=== PATIENT | male | born 1980 | race Caucasian/White ===

== ENCOUNTER 2019-02-03 09:08 | Inpatient (IN) | payer OTHER ==
[~2019-02-03] VITALS: Ht 182.9 cm; Wt 90.7 kg
[~2019-02-03 09:08] MED LIST: CARAFATE1 GM/10 ML PO; DICYCLOMINE HCL20 MG PO; FLAGYL250 MG PO; LEVAQUIN500 MG PO; PROTONIX40 MG/ML PO; REGLAN10 MG PO; ZOFRAN ODT4 MG PO
--- OUTSIDE RECORDS SUMMARY | 2019-02-03 09:11 | XMS REPORT ---
Author Author [facility] Address Unknown Phone Unavailable Care Team Providers Care Shuttler Car Name Role Phone Unavailable Unavailable Payers Payer Name Policy Type Policy Number Effective Date Expiration Date Problems This patient has no known problems. Allergies, Adverse Reactions, Alerts Allergy Name Allergy Type Status Severity Reaction(s) Onset Date Inactive Date Treating Clinician Comments morphine DA Active CA 2019-02-01 00:00:00 morphine DA Active CA 2016-12-25 00:00:00 Medications This patient has no known medications. Results Test Description Test Time Test Comments Text Results Atomic Results Result Comments DRUGS OF ABUSE SCREEN UR 2019-02-01 20:14:00 UA PH DIPSTICK (test code=VIVIEN) 5.0 5.0-8.0 URN COCAINE (test code=COCAURN) NEGATIVE <300 ng/mL URN CANNABINOIDS (test code=CANNABURN) POSITIVE <50 ng/mL This test provides only a preliminary test result. A morespecific alternate chemical method must be used in order toobtain a confirmed analytical result. Gas chromatography/mass spectrometry (GC/MS) is thepreferred confirmatory method. Other chemical confirmationmethods are available. Clinical consideration and professional judgment should be applied to any drug of abusetest result, particularly when preliminary positive resultsare used.Unconfirmed screening results must not be used fornon-medical purposes (e.g., employment testing, legaltesting). URN AMPHETAMINE (test code=AMPHETURN) NEGATIVE <1000 ng/mL URN BARBITURATE (test code=BARBITURN) NEGATIVE <200 ng/mL URN BENZODIAZEPINE (test code=BENZOURN) NEGATIVE <200 ng/mL URN OPIATES (test code=OPIATURN) NEGATIVE <300 ng/mL URN PHENCYCLIDINE (PCP) (test code=PHENCURN) NEGATIVE <25 ng/mL URN METHADONE (test code=METHAURN) NEGATIVE <300 ng/mL URINALYSIS [id number] 19:42:00* Test Item Value Reference Range Comments UA COLOR (test code=COLU) MARIE YELLOW UA APPEARANCE (test code=APPU) Cloudy CLEAR UA GLUCOSE DIPSTICK (test code=DGLUU) NEGATIVE mg/dL NEGATIVE UA BILIRUBIN DIPSTICK (test code=BILU) 1+ (Small 0.5-1.0) mg/dL NEGATIVE UA KETONE DIPSTICK (test code=KETU) 20 (1+) mg/dL NEGATIVE UA SPECIFIC GRAVITY (test code=SGU) 1.030 1.001-1.035 UA BLOOD DIPSTICK (test code=VIRGILIO) Negative mg/dL NEGATIVE UA PH DIPSTICK (test code=VIVIEN) 5.0 5.0-8.0 UA PROTEIN DIPSTICK (test code=PROU) 100 (2+) mg/dL NEGATIVE UA UROBILINIOGEN DIPSTICK (test code=URO) 2.0 (1+) mg/dL NEGATIVE UA NITRITE DIPSTICK (test code=ROSS) NEGATIVE NEGATIVE UA LEUKOCYTE ESTERASE W REFLEX (test code=LEUUR) NEGATIVE Huma/uL NEGATIVE UA WBC (test code=WBCU) 11-20 per HPF 0-5 UA RBC (test code=RBCU) 0-2 #/HPF 0-5 UA EPITHELIAL CELLS (test code=EPIU) FEW per HPF FEW UA BACTERIA (test code=BACU) FEW #/HPF NONE UA HYALINE CAST (test code=HYALU) >20 #/LPF 0-5 UA MUCUS (test code=MUCU) MANY #/LPF FEW Urine Source? Clean CatchDRUGS OF ABUSE SCREEN [id number] 19:42:00* Test Item Value Reference Range Comments UA PH DIPSTICK (test code=VIVIEN) 5.0 5.0-8.0 URN COCAINE (test code=COCAURN) <300 ng/mL URN CANNABINOIDS (test code=CANNABURN) <50 ng/mL URN AMPHETAMINE (test code=AMPHETURN) <1000 ng/mL URN BARBITURATE (test code=BARBITURN) <200 ng/mL URN BENZODIAZEPINE (test code=BENZOURN) <200 ng/mL URN OPIATES (test code=OPIATURN) <300 ng/mL URN PHENCYCLIDINE (PCP) (test code=PHENCURN) <25 ng/mL URN METHADONE (test code=METHAURN) <300 ng/mL BASIC METABOLIC [id number] 18:26:00* Test Item Value Reference Range Comments SODIUM (test code=NA) 135 mmol/L 136-145 POTASSIUM (test code=K) 4.0 mmol/L 3.5-5.1 CHLORIDE (test code=CL) 108.0 mmol/L 98-107 CARBON DIOXIDE (test code=CO2) 17.0 mmol/L 21-32 ANION GAP (test code=GAP) 14.0 10-20 GLUCOSE (test code=GLU) 122 mg/dL 74-106 BLOOD UREA NITROGEN (test code=BUN) 22 mg/dL 7-18 GLOMERULAR FILTRATION RATE (test code=GFR) > 60 mL/min >=60 Estimated GFR by using Modified MDRD formula.Chronic kidney disease is defined as either kidney damageor GFR <60 mL/min/1.73 m2 for >3 months. CREATININE (test code=CREAT) 1.30 mg/dL 0.7-1.3 BUN/CREATININE RATIO (test code=BUN/CREA) 16.9 10-20 CALCIUM (test code=CA) 10.3 mg/dL 8.5-10.1 HEPATIC FUNCTION [id number] 18:26:00* Test Item Value Reference Range Comments TOTAL PROTEIN (test code=PROT) 9.5 gram/dL 6.4-8.2 ALBUMIN (test code=ALB) 4.9 g/dL 3.4-5.0 GLOBULIN (test code=GLOB) 4.6 gram/dL 2.7-4.2 ALBUMIN/GLOBULIN RATIO (test code=A/G) 1.1 0.75-1.50 BILIRUBIN TOTAL (test code=BILT) 0.80 mg/dL 0.0-1.0 BILIRUBIN DIRECT (test code=BILD) 0.10 mg/dL 0.0-0.20 SGOT/AST (test code=AST) 19 IUnit/L 15-37 SGPT/ALT (test code=ALT) 26 IUnit/L 12-78 ALKALINE PHOSPHATASE TOTAL (test code=ALKP) 90 IUnit/L 45-117 Note change in reference range due to change in reagent. [id number] 18:26:00* Test Item Value Reference Range Comments LIPASE (test code=LIP) 75 U/L 73.0-393.0 [id number] 18:26:00* Test Item Value Reference Range Comments TROPONIN-I (test code=TROPI) <0.015 ng/mL 0-0.045 C REACTIVE [id number] 18:26:00* Test Item Value Reference Range Comments C REACTIVE PROTEIN (test code=CRP) <0.29 mg/dL 0-0.3 BASIC METABOLIC [id number] 18:16:00* Test Item Value Reference Range Comments SODIUM (test code=NA) 135 mmol/L 136-145 POTASSIUM (test code=K) 4.0 mmol/L 3.5-5.1 CHLORIDE (test code=CL) 108.0 mmol/L 98-107 CARBON DIOXIDE (test code=CO2) mmol/L 21-32 ANION GAP (test code=GAP) 10-20 GLUCOSE (test code=GLU) mg/dL 74-106 BLOOD UREA NITROGEN (test code=BUN) mg/dL 7-18 GLOMERULAR FILTRATION RATE (test code=GFR) mL/min >=60 CREATININE (test code=CREAT) mg/dL 0.7-1.3 BUN/CREATININE RATIO (test code=BUN/CREA) 10-20 CALCIUM (test code=CA) mg/dL 8.5-10.1 HEPATIC FUNCTION [id number] 18:16:00* Test Item Value Reference Range Comments TOTAL PROTEIN (test code=PROT) gram/dL 6.4-8.2 ALBUMIN (test code=ALB) g/dL 3.4-5.0 GLOBULIN (test code=GLOB) gram/dL 2.7-4.2 ALBUMIN/GLOBULIN RATIO (test code=A/G) 0.75-1.50 BILIRUBIN TOTAL (test code=BILT) mg/dL 0.0-1.0 BILIRUBIN DIRECT (test code=BILD) mg/dL 0.0-0.20 SGOT/AST (test code=AST) IUnit/L 15-37 SGPT/ALT (test code=ALT) IUnit/L 12-78 ALKALINE PHOSPHATASE TOTAL (test code=ALKP) IUnit/L 45-117 [id number] 18:16:00* Test Item Value Reference Range Comments LIPASE (test code=LIP) U/L 73.0-393.0 [id number] 18:16:00* Test Item Value Reference Range Comments TROPONIN-I (test code=TROPI) ng/mL 0-0.045 CBC W/O [id number] 17:59:00* Test Item Value Reference Range Comments WHITE BLOOD CELL (test code=WBC) K/mm3 4.5-12.5 RED BLOOD CELL (test code=RBC) mill/mm3 4.0-5.8 HEMOGLOBIN (test code=HGB) 17.3 gram/dL 13.0-17.5 HEMATOCRIT (test code=HCT) % 42.0-52.0 MEAN CELL VOLUME (test code=MCV) fL 80-98 MEAN CELL HGB (test code=MCH) picogram 27.0-33.0 MEAN CELL HGB CONCETRATION (test code=MCHC) gram/dL 33.0-36.0 RED CELL DISTRIBUTION WIDTH (test code=RDW) % 11.6-16.2 PLATELET COUNT (test code=PLT) K/mm3 150-450 MEAN PLATELET VOLUME (test code=MPV) fL 6.7-11.0 CBC W/O [id number] 17:59:00* Test Item Value Reference Range Comments WHITE BLOOD CELL (test code=WBC) 13.3 K/mm3 4.5-12.5 RED BLOOD CELL (test code=RBC) 6.10 mill/mm3 4.0-5.8 HEMOGLOBIN (test code=HGB) 17.3 gram/dL 13.0-17.5 HEMATOCRIT (test code=HCT) 53.3 % 42.0-52.0 MEAN CELL VOLUME (test code=MCV) 87.4 fL 80-98 MEAN CELL HGB (test code=MCH) 28.4 picogram 27.0-33.0 MEAN CELL HGB CONCETRATION (test code=MCHC) 32.5 gram/dL 33.0-36.0 RED CELL DISTRIBUTION WIDTH (test code=RDW) 13.3 % 11.6-16.2 PLATELET COUNT (test code=PLT) 230 K/mm3 150-450 MEAN PLATELET VOLUME (test code=MPV) 10.9 fL 6.7-11.0 - XR CHEST 1 [id number] 17:53:00 FAX: Maury Vieira DO [phone] [place]: St: REG FAX: MIKEY SAINI MD Name: BERNICE HERNANDEZ [facility] : 1980 Age/S: 38/M [address] [facility] Unit #: [id number] Loc: [place] [address] Phys: MIKEY SAINI MD Acct: [id number] Dis Date: Status: REG ER PHONE #: [phone] Exam Date: 02/01/2019 1750 FAX #: [phone] Reason: ABDOMINAL PAIN EXAMS: CPT CODE: [id number] XR CHEST 1 V [id number] REASON FOR EXAM: ABDOMINAL PAIN EXAM ORDER DATE: 02/01/2019 5:31 PM Ordering Shanta: MIKEY SAINI MD PROCEDURE: - XR CHEST 1 V COMPARISON: FINDINGS: Portable AP frontal view of the chest obtained at 5:49 PM shows clear lungs without evidence of consolidation. There is no evidence of effusion. The heart size is within normal limits. Pulmonary vasculatures are unremarkable. IMPRESSION: No active disease. at 1753 Reported and signed by: Ajith Lujan M.D. CC: Maury Raphael; MIKEY SAINI MD Technologist: MAGED OROSCO(R) Trnscrd Date/Time/By: 02/01/2019 (4481) : By: DavidL Orig Print D/T: S: 02/01/2019 (6734) PAGE 1 Signed Report
[2019-02-03] MEDS ORDERED: ONDANSETRON HCL INJ 2MG/ML 2ML 2 MG/ML VIAL IV STA (09:43)
[2019-02-03] MEDS ORDERED: SODIUM CHLORIDE 0.9% 1000ML 1,000 ML IV STA ×2 (09:43→09:58)
[2019-02-03] MEDS ORDERED: PANTOPRAZOLE 40 MG 10ML VIAL IV STA (09:43)
[2019-02-03 10:16] LABS: BASOPHILS # (AUTO) 0.1 (0.0-0.1); BASOPHILS % 0.3 % (0.0-1.0); EOSINOPHILS % 0.1 % (0.0-6.0); HEMATOCRIT 52.7 % (38.2-49.6); HEMOGLOBIN 18.3 g/dL (14.0-18.0); LYMPHOCYTES # (AUTO) 2.9 (1.0-3.2); LYMPHOCYTES % 19.8 % (18.0-39.1); MEAN CORPUSCULAR HEMOGLOBIN 29.5 pg (28-32); MEAN CORPUSCULAR HGB CONC 34.7 g/dL (31-35); MEAN CORPUSCULAR VOLUME 84.9 fL (81-99); MONOCYTES # (AUTO) 1.9 (0.2-0.8); NEUTROPHILS # (AUTO) 9.6 (2.1-6.9); PLATELET COUNT 219 x10e3/uL (140-360); RED BLOOD COUNT 6.21 x10e6/uL (4.3-5.7); RED CELL DISTRIBUTION WIDTH 13.2 % (11.7-14.4)
[2019-02-03] MEDS ORDERED: DIATRIZOATE MEGL/DIATRIZOA SOD 30 ML BTL PO ONE ×2 (10:18→10:41)
[2019-02-03] MEDS ORDERED: METOCLOPRAMIDE HCL 10 MG/2ML VIAL IV ONE (10:45)
[2019-02-03] MEDS ORDERED: DICYCLOMINE HCL 20 MG/2 ML VIAL IM ONE (10:45)
[2019-02-03] MEDS: SODIUM CHLORIDE 0.9% 1000ML 1,000 ML IV STA ×2 (10:54→11:20)
[2019-02-03 10:58] LABS: INR 0.99; PROTHROMBIN TIME 13.6 seconds (11.9-14.5)
[2019-02-03 10:59] LABS: PARTIAL THROMBOPLASTIN TIME 33.6 seconds (23.8-35.5)
[2019-02-03 11:07] LABS: ALBUMIN 4.5 g/dL (3.5-5.0); ALBUMIN/GLOBULIN RATIO 1.1 (0.8-2.0); ANION GAP 16.6 mmol/L (8-16); CALCIUM 9.7 mg/dL (8.4-10.2); CREATININE, SERUM 3.8 mg/dL (0.72-1.25); MAGNESIUM 2.4 MG/DL (1.3-2.1); POTASSIUM 3.6 mmol/L (3.5-5.1)
[2019-02-03 11:13] LABS: CREATINE KINASE MB 0.5 ng/mL (0-5.0)
[2019-02-03] MEDS ORDERED: PROMETHAZINE 12.5MG/ NACL 0.9% 12.5 MG/50 ML BAG IV ONE (11:30)
[2019-02-03] MEDS ORDERED: LORAZEPAM INJ 2 MG/ML VIAL IV ONE (11:30)
[2019-02-03] MEDS ORDERED: MORPHINE SULFATE INJ 4 MG/ML INJ 1ML IV STA (11:33)
[2019-02-03] MEDS ORDERED: HYDROMORPHONE 1MG/1ML INJ IV STA (11:46)
[2019-02-03] MEDS ORDERED: HYDROMORPHONE 2MG/ML 2 MG/ML ML IV NR (12:00)
[2019-02-03 12:03] LABS: AMPHETAMINES SCREEN,URINE NEGATIVE (NEGATIVE); BENZODIAZEPINES SCREEN,URINE NEGATIVE (NEGATIVE); PHENCYCLIDINE SCREEN,URINE NEGATIVE (NEGATIVE)
[2019-02-03 12:34] LABS: CLARITY,URINE HAZY (CLEAR); COLOR,URINE YELLOW (YELLOW); KETONES,URINE NEGATIVE (NEGATIVE); LEUKOCYTE ESTERASE ,URINE NEGATIVE (NEGATIVE); NITRITE,URINE NEGATIVE (NEGATIVE); PROTEIN,URINE DIPSTICK 2+ (NEGATIVE)
[2019-02-03 12:35] LABS: BILIRUBIN,URINE 1+ (NEGATIVE); URINE UROBILINOGEN 0.2 mg/dL (0.2 - 1)
[2019-02-03 12:36] LABS: BACTERIA,URINE MANY /HPF; COARSE GRANULAR CASTS,URINE >15 (0); EPITHELIAL CELLS,URINE MANY /LPF
--- NOTE | 2019-02-03 13:35 | Diagnostic Imaging Report ---
EXAM: CHEST SINGLE (PORTABLE) DATE: 02/03/2019 9:43 AM INDICATION:Nausea, vomiting COMPARISON: None FINDINGS: Lines and tubes: None Heart size normal. No focal pulmonary opacity, pleural effusion or pneumothorax. No acute bony abnormality. Upper abdomen unremarkable. IMPRESSION: No evidence for acute disease. Signed by: Dr. Ac Xie M.D. on 02/03/2019 1:32 PM
--- NOTE | 2019-02-03 13:37 | Diagnostic Imaging Report ---
EXAM: CT Abdomen and Pelvis WITHOUT contrast INDICATION: Abdominal pain, nausea, vomiting, history of intussusception. COMPARISON: CT abdomen/pelvis with contrast 08/04/2016. TECHNIQUE: Abdomen and pelvis were scanned utilizing a multidetector helical scanner from the lung base to the pubic symphysis without administration of IV contrast. Absence of intravenous contrast decreases sensitivity for detection of focal lesions and vascular pathology. Coronal and sagittal reformations were obtained. Routine protocol was performed. IV CONTRAST: None. ORAL CONTRAST: Gastrografin RADIATION DOSE: Total DLP: 729.9 mGy*cm Dose modulation, iterative reconstruction, and/or weight based adjustment of the mA/kV was utilized to reduce the radiation dose to as low as reasonably achievable. COMPLICATIONS: None FINDINGS: LINES and TUBES: None. LOWER THORAX: Unremarkable HEPATOBILIARY: No focal hepatic lesions. No biliary ductal dilation. Status post cholecystectomy. SPLEEN: No splenomegaly. PANCREAS: Limited evaluation in the absence of contrast. No evidence of focal masses or ductal dilatation. ADRENALS: No adrenal nodules KIDNEYS/URETERS: No hydronephrosis. No cystic or solid mass lesions. No stones. GI TRACT: Eccentric fat is noted within a jejunal loop with likely intussusception with mild jejunal wall thickening, as seen on series 2, image 44. No evidence of bowel obstruction. Status post appendectomy. There is mild fatty infiltration to the wall of the colon diffusely which reveals mildly thickened diffusely. The rectum appears unremarkable. Evaluation is somewhat limited in the absence of oral contrast within the large bowel. No surrounding inflammatory changes. PELVIC ORGANS/BLADDER: Unremarkable. LYMPH NODES: No lymphadenopathy. VESSELS: Minimal atherosclerotic calcifications in the abdominal aorta. PERITONEUM / RETROPERITONEUM: No free air or fluid. BONES: Unremarkable. SOFT TISSUES: Unremarkable. IMPRESSION: Findings of jejunojejunal intussusception. No evidence of bowel obstruction, pneumatosis, or free air. Diffuse mild thickening of the colon with fatty infiltration of the wall, which may reflect sequela of prior colitis. Superimposed acute infectious or inflammatory colitis is possible but there is no significant surrounding inflammatory changes. Signed by: Dr. Samuel Alva MD on 02/03/2019 1:34 PM
[2019-02-03] MEDS ORDERED: PROMETHAZINE HCL (IM) 25 MG/ML VIAL IV PRN (14:00)
[2019-02-03] MEDS ORDERED: HYDROMORPHONE 1MG/1ML INJ IV PRN (14:00)
--- OUTSIDE RECORDS SUMMARY | 2019-02-03 14:02 | XMS REPORT ---
Author [facility] Address Unknown Phone Unavailable Care Team Providers Care Compressed Gases Tester Name Role Phone Jada RAMOS Unavailable Unavailable Payers Payer Name Policy Type Policy Number Effective Date Expiration Date Problems This patient has no known problems. Allergies, Adverse Reactions, Alerts Allergy Name Allergy Type Status Severity Reaction(s) Onset Date Inactive Date Treating Clinician Comments morphine DA Active MD 2019-02-01 00:00:00 morphine DA Active MD 2016-12-25 00:00:00 Medications This patient has no known medications. Results Test Description Test Time Test Comments Text Results Atomic Results Result Comments CHEST SINGLE (PORTABLE) 2019-02-03 13:31:00 [place] [id number] Patient Name: CARRIE HERNANDEZ MR #: [id number] : 1980 Age/Sex: 38/M Req #: [id number] Adm Physician: Ordered by: TRUONG RAMOS MD Report #: [id number] Location: ER Room/Bed: Procedure: [id number] DX/CHEST SINGLE (PORTABLE) Exam Date: 02/03/19 Exam Time: 1010 REPORT STATUS: Signed EXAM: CHEST SINGLE (PORTABLE) DATE: 02/03/2019 9:43 AM INDICATION:Nausea, vomiting COMPARISON: None FINDINGS: Lines and tubes: None Heart size normal. No focal pulmonary opacity, pleural effusion or pneumothorax. No acute bony abnormality. Upper abdomen unremarkable. IMPRESSION: No evidence for acute disease. Signed by: Dr. Ac Blanco M.D. on 02/03/2019 1:32 PM Dictated By: AC BLANCO MD 1332 Transcribed By: KAMRYN on 02/03/19 1332 COPY TO: TRUONG RAMOS MD CT ABDOMEN/PELVIS WO 2019-02-03 13:23:00 [place] [id number] Patient Name: CARRIE HERNANDEZ MR #: [id number] : 1980 Age/Sex: 38/M Req #: [id number] Adm Physician: Ordered by: TRUONG RAMOS MD Report #: [id number] Location: ER Room/Bed: Procedure: [id number] CT/CT ABDOMEN/PELVIS WO Exam Date: 02/03/19 Exam Time: 1150 REPORT STATUS: Signed EXAM: CT Abdomen and Pelvis WITHOUT contrast INDICATION: Abdominal pain, nausea, vomiting, history of intussusception. COMPARISON: CT abdomen/pelvis with contrast 08/04/2016. TECHNIQUE: Abdomen and pelvis were scanned utilizing a multidetector helical scanner from the lung base to the pubic symphysis without administration of IV contrast. Absence of intravenous contrast decreases sensitivity for detection of focal lesions and vascular pathology. Coronal and sagittal reformations were obtained. Routine protocol was performed. IV CONTRAST: None. ORAL CONTRAST: Gastrografin RADIATION DOSE: Total DLP: 729.9 mGy*cm Dose modulation, iterative reconstruction, and/or weight based adjustment of the mA/kV was utilized to reduce the radiation dose to as low as reasonably achievable. COMPLICATIONS: None FINDINGS: LINES and TUBES: None. LOWER THORAX: Unremarkable HEPATOBILIARY: No focal hepatic lesions. No biliary ductal dilation. Status post cholecystectomy. SPLEEN: No splenomegaly. PANCREAS: Limited evaluation in the absence of contrast. No evidence of focal masses or ductal dilatation. ADRENALS: No adrenal nodules KIDNEYS/URETERS: No hydronephrosis. No cystic or solid mass lesions. No stones. GI TRACT: Eccentric fat is noted within a jejunal loop with likely intussusception with mild jejunal wall thickening, as seen on series 2, image 44. No evidence of bowel obstruction. Status post appendectomy. There is mild fatty infiltration to the wall of the colon diffusely which reveals mi ldly thickened diffusely. The rectum appears unremarkable. Evaluation is somewhat limited in the absence of oral contrast within the large bowel. No surrounding inflammatory changes. PELVIC ORGANS/BLADDER: Unremarkable. LYMPH NODES: No lymphadenopathy. VESSELS: Minimal atherosclerotic calcifications in the abdominal aorta. PERITONEUM / RETROPERITONEUM: No free air or fluid. BONES: Unremarkable. SOFT TISSUES: Unremarkable. IMPRESSION: Findings of jejunojejunal intussusception. No evidence of bowel obstruction, pneumatosis, or free air. Diffuse mild thickening of the colon with fatty infiltration of the wall, which may reflect sequela of prior colitis. Superimposed acute infectious or inflammatory colitis is possible but there is no significant surrounding inflammatory changes. Signed by: Dr. Drake Real MD on 02/03/2019 1:34 PM Dictated By: DRAKE REAL MD [id number] Transcribed By: KAMRYN on 02/03/19 3721 COPY TO: TRUONG RAMOS MD DRUGS OF ABUSE SCREEN UR 2019-02-01 20:14:00 [...] METHADONE (test code=METHAURN) NEGATIVE <300 ng/mL URINALYSIS [id number] 19:42:00* Test Item Value Reference Range Comments [...] Urine Source? Clean CatchDRUGS OF ABUSE SCREEN [id number] 19:42:00* Test Item Value Reference Range Comments [...] METHADONE (test code=METHAURN) <300 ng/mL BASIC METABOLIC [id number] 18:26:00* Test Item Value Reference Range Comments [...] (test code=CA) 10.3 mg/dL 8.5-10.1 HEPATIC FUNCTION [id number] 18:26:00* Test Item Value Reference Range Comments [...] reference range due to change in reagent. [id number] 18:26:00* Test Item Value Reference Range Comments LIPASE (test code=LIP) 75 U/L 73.0-393.0 [id number] 18:26:00* Test Item Value Reference Range Comments TROPONIN-I (test code=TROPI) <0.015 ng/mL 0-0.045 C REACTIVE [id number] 18:26:00* Test Item Value Reference Range Comments C REACTIVE PROTEIN (test code=CRP) <0.29 mg/dL 0-0.3 BASIC METABOLIC [id number] 18:16:00* Test Item Value Reference Range Comments [...] CALCIUM (test code=CA) mg/dL 8.5-10.1 HEPATIC FUNCTION [id number] 18:16:00* Test Item Value Reference Range Comments TOTAL PROTEIN (test code=PROT) gram/dL 6.4-8.2 ALBUMIN (test code=ALB) g/dL 3.4-5.0 GLOBULIN (test code=GLOB) gram/dL 2.7-4.2 ALBUMIN/GLOBULIN RATIO (test code=A/G) 0.75-1.50 BILIRUBIN TOTAL (test code=BILT) mg/dL 0.0-1.0 BILIRUBIN DIRECT (test code=BILD) mg/dL 0.0-0.20 SGOT/AST (test code=AST) IUnit/L 15-37 SGPT/ALT (test code=ALT) IUnit/L 12-78 ALKALINE PHOSPHATASE TOTAL (test code=ALKP) IUnit/L 45-117 [id number] 18:16:00* Test Item Value Reference Range Comments LIPASE (test code=LIP) U/L 73.0-393.0 [id number] 18:16:00* Test Item Value Reference Range Comments TROPONIN-I (test code=TROPI) ng/mL 0-0.045 CBC W/O [id number] 17:59:00* Test Item Value Reference Range Comments [...] VOLUME (test code=MPV) fL 6.7-11.0 CBC W/O [id number] 17:59:00* Test Item Value Reference Range Comments [...] 10.9 fL 6.7-11.0 - XR CHEST 1 [id number] 17:53:00 FAX: Maury Vieira [phone] [place]: St: [facility] FAX: MIKEY SAINI MD Name: BERNICE HERNANDEZ [facility] : 1980 Age/S: 38/M [address] [facility] Unit #: [id number] Loc: [place] [address] Phys: MIKEY SAINI MD Acct: [id number] Dis Date: Status: REG ER PHONE #: [phone] Exam Date: 02/01/2019 1750 FAX #: [phone] Reason: ABDOMINAL PAIN EXAMS: CPT CODE: [id number] XR CHEST 1 V [id number] REASON FOR EXAM: ABDOMINAL PAIN EXAM ORDER [...] are unremarkable. IMPRESSION: No active disease. at 1754 Reported and signed by: Ajith Lujan M.D. CC: Maury Raphael; MIKEY SAINI MD Technologist: MAGED OROSCO(R) Trnscrd Date/Time/By: 02/01/2019 (9699) : By: AyanaVTL Orig Print D/T: S: 02/01/2019 (9364) PAGE 1 Signed Report
[2019-02-03] MEDS ORDERED: BENZOCAINE/TETRACAINE/BUTAMBEN AERO SPRAY 56 GM CAN TOP ONE (14:15)
[2019-02-03 14:22] LABS: ANISOCYTOSIS SLIGHT; LYMPHOCYTES % (MANUAL) 12 % (19-48); MONOCYTES % (MANUAL) 11 % (3.4-9.0); NEUTROPHILS % (MANUAL) 75 % (40-74); RBC MORPHOLOGY COMMENT NORMAL
[2019-02-03 14:23] LABS: PLATELET ESTIMATE ADEQUATE; PLATELET MORPHOLOGY COMMENT NORMAL
--- NOTE | 2019-02-03 15:19 | NUR ---
PATIENT ARRIVED ON THE UNIT PER STRETCHER FROM THE ER. PATIENT IN STABLE CONDITION WITH NO S/S OF RESPIRATORY DISTRESS. NG TUBE PLACED IN RIGHT NARE AND CONNECT TO LIWS. PRESENT IN ROOM. CALL LIGHT IS WITHIN REACH OF PATIENT- PATIENT INSTRUCTED TO CALL FOR ASSISTANCE NEEDED.
[2019-02-03 15:36] VITALS: BP 128/88
[2019-02-03] MEDS ORDERED: REGLAN5 MG PO (15:40)
[2019-02-03] MEDS ORDERED: HYOSCYAMINE0.125 M1 PO (15:42)
[2019-02-03] MEDS: ONDANSETRON HCL INJ 2MG/ML 2ML 2 MG/ML VIAL IV PRN ×2 (16:14→20:42)
[2019-02-03] MEDS: HYDROMORPHONE 2MG/ML 2 MG/ML ML IV PRN ×2 (16:14→20:42)
[2019-02-03] MEDS: PIPERACILLIN/TAZO 2.25 GM 50 ML IV SCH ×2 (16:18→22:02)
[2019-02-03] MEDS: SODIUM CHLORIDE 0.9% 1000ML 1,000 ML IV SCH (16:18)
[2019-02-03] MEDS ORDERED: ACETAMINOPHEN 1000 MG/100 ML IV PRN (18:30)
[2019-02-03] MEDS ORDERED: LORAZEPAM INJ 2 MG/ML VIAL IV PRN (18:30)
[2019-02-03] MEDS ORDERED: HYDRALAZINE HCL 20 MG/ML VIAL IV PRN (18:30)
[2019-02-03] MEDS: METOCLOPRAMIDE HCL 10 MG/2ML VIAL IV SCH (18:37)
--- NOTE | 2019-02-03 19:19 | NUR ---
PATIENT IN STABLE CONDITION WITH NO S/S OF RESPIRATORY DISTRESS. NO PAIN VOICED. NG TUBE CONNECTED TO SUCTION. IV FLUIDS INFUSING. CALL LIGHT IS WITHIN REACH OF PATIENT- PATIENT INSTRUCTED TO CALL FOR ASSISTANCE NEEDED. BEDSIDE REPORT GIVEN TO ONCOMING NURSE.
[2019-02-03 19:37] VITALS: BP 142/72
--- NOTE | 2019-02-03 19:37 | Consultation ---
DATE OF CONSULTATION: 02/03/2019 CHIEF COMPLAINT: Abdominal pain, vomiting. HISTORY OF PRESENT ILLNESS: The patient is a 38-year-old male with 3-day history of periumbilical upper abdominal cramping pain with nausea and vomiting. No hematemesis. No bowel movements. PAST MEDICAL HISTORY: Positive for gastroparesis. SURGICAL HISTORY: Positive for appendectomy, laparoscopy, lysis of adhesions for previous intussusception. ALLERGIES: THE PATIENT IS ALLERGIC TO MORPHINE. SOCIAL HISTORY: Habits denies smoking or alcohol abuse. REVIEW OF SYSTEMS: No fever, chills, chest pain or shortness or breath. PHYSICAL EXAMINATION: VITAL SIGNS: Stable, afebrile. GENERAL: He is awake, alert, in mild discomfort. HEENT: Sclera is anicteric. NECK: Supple. LUNGS: Clear. HEART: Regular rate and rhythm. ABDOMEN: Soft with some guarding in the left periumbilical area and epigastrium with no rebound tenderness. EXTREMITIES: Without cyanosis or edema. LABORATORY DATA: White cell count 14.5, hemoglobin of 18. Creatinine of 3.8, BUN 37, lactic acid 11.9. Liver function tests within normal limits. Lipase of 11. CT of the abdomen show evidence of duodenojejunal intussusception. Mild thickening of the colon, possible colitis. ASSESSMENT: Intractable vomiting with clinical evidence of intestinal obstruction secondary to intussusception. The last episode was six years ago in [place] for which he underwent laparoscopy, reduction. PLAN: IV hydration to replenish volume loss from repeated vomiting. Repeat abdominal x-ray. No plan for any surgical intervention until persistence of obstruction or clinical deterioration. N.p.o. with ice chips. Rosalio Aguirre MD DNKya/MODL /[id number]
--- NOTE | 2019-02-03 19:37 | NUR ---
PT IS RESTING IN BED. NO RESPIRATORY DISTRESS NOTED. BED IN THE LOWEST POSITION, LOCKED, AND CALL LIGHT WITHIN REACH. WILL CONTINUE TO MONITOR.
[2019-02-03 20:00] VITALS: BP 142/75
[2019-02-03] MEDS ORDERED: PANTOPRAZOLE 40 MG 10ML VIAL IV SCH (21:00)
--- NOTE | 2019-02-03 22:16 | Diagnostic Imaging Report ---
EXAM: ABDOMEN-2 VIEW (KUB) DATE: 02/03/2019 6:28 PM INDICATION: Intussusception. COMPARISON: None FINDINGS: LINES/TUBES: NG tube with distal tip projected on the gastric fundus, and sidehole projected on the expected location of the esophagogastric junction; suggest advancing 3 to 4 cm. BOWEL PATTERN: No evidence for obstruction. Residual contrast within the colon. Cholecystectomy clips. Surgical clips in superior right hemipelvis. SOFT TISSUES: No abnormal calcifications. No mass effect. LUNG BASES: Clear. BONES: No acute findings. IMPRESSION: 1. NG tube with distal tip projected on the gastric fundus, and sidehole projected on the expected location of the esophagogastric junction; suggest advancing 3 to 4 cm. 2. Nonobstructive bowel gas pattern. Residual contrast within the colon. Signed by: Dr. Josefina Ballard M.D. on 02/03/2019 10:13 PM
[2019-02-04] VITALS (8 sets, daily range): BP systolic 113–155; BP diastolic 64–89
[2019-02-04] MEDS: HYDROMORPHONE 2MG/ML 2 MG/ML ML IV PRN ×6 (00:48→22:28)
[2019-02-04] MEDS: ONDANSETRON HCL INJ 2MG/ML 2ML 2 MG/ML VIAL IV PRN ×6 (00:48→22:28)
[2019-02-04] MEDS: SODIUM CHLORIDE 0.9% 1000ML 1,000 ML IV SCH ×4 (00:51→21:47)
[2019-02-04] MEDS: METOCLOPRAMIDE HCL 10 MG/2ML VIAL IV SCH ×5 (01:04→23:59)
[2019-02-04 03:59] LABS: BASOPHILS % 0.4 % (0.0-1.0); EOSINOPHILS # (AUTO) 0.2 (0.0-0.4); EOSINOPHILS % 1.6 % (0.0-6.0); HEMATOCRIT 43.1 % (38.2-49.6); HEMOGLOBIN 14.5 g/dL (14.0-18.0); LYMPHOCYTES # (AUTO) 3.7 (1.0-3.2); LYMPHOCYTES % 33.4 % (18.0-39.1); MEAN CORPUSCULAR HEMOGLOBIN 29.2 pg (28-32); MEAN CORPUSCULAR HGB CONC 33.6 g/dL (31-35); MEAN CORPUSCULAR VOLUME 86.9 fL (81-99); MONOCYTES # (AUTO) 1.4 (0.2-0.8); MONOCYTES % 12.6 % (4.4-11.3); NEUTROPHILS # (AUTO) 5.6 (2.1-6.9); NEUTROPHILS % 51.5 % (38.7-80.0); PLATELET COUNT 182 x10e3/uL (140-360); RED BLOOD COUNT 4.96 x10e6/uL (4.3-5.7)
[2019-02-04 04:20] LABS: ANION GAP 10.7 mmol/L (8-16); BLOOD UREA NITROGEN 25 mg/dL (7-26); BUN/CREATININE RATIO 21 (6-25); CALCIUM 9.1 mg/dL (8.4-10.2); CARBON DIOXIDE 25 mmol/L (22-29); CHLORIDE 104 mmol/L (98-107); EST GLOMERULAR FILTRATION RATE > 60 ML/MIN (60-); GLUCOSE 105 mg/dL (74-118); MAGNESIUM 2.5 MG/DL (1.3-2.1); POTASSIUM 3.7 mmol/L (3.5-5.1); SODIUM 136 mmol/L (136-145)
[2019-02-04 04:26] LABS: CREATININE, SERUM 1.17 mg/dL (0.72-1.25)
[2019-02-04 04:41] LABS: THYROID STIMULATING HORMONE 1.438 uIU/mL (0.350-4.940)
[2019-02-04 04:43] LABS: B-TYPE NATRIURETIC PEPTIDE2 26.9 pg/mL (0-100)
[2019-02-04] MEDS: PIPERACILLIN/TAZO 2.25 GM 50 ML IV SCH ×3 (06:06→21:47)
[2019-02-04] MEDS ORDERED: LACTATED RINGER'S 1,000 ML IV ONE (07:15)
[2019-02-04 08:05] LABS: ALBUMIN 3.7 g/dL (3.5-5.0); BILIRUBIN,DIRECT 0.6 mg/dL (0.0-0.5)
[2019-02-04] MEDS: PANTOPRAZOLE 40 MG 10ML VIAL IV SCH (08:16)
[2019-02-04] MEDS ORDERED: DIATRIZOATE MEGL/DIATRIZOA SOD 30 ML BTL PO ONE (10:11)
--- NOTE | 2019-02-04 12:32 | Diagnostic Imaging Report ---
EXAM: CT Abdomen WITHOUT contrast INDICATION: Follow-up small bowel intussusception. COMPARISON: CT abdomen/pelvis with contrast 02/03/2019. TECHNIQUE: Abdomen was scanned utilizing a multidetector helical scanner from the lung base to the iliac crests without administration of IV contrast. Absence of intravenous contrast decreases sensitivity for detection of focal lesions and vascular pathology. Coronal and sagittal reformations were obtained. Routine protocol was performed. IV CONTRAST: None. ORAL CONTRAST: Gastrografin RADIATION DOSE: Total DLP: 212.1 mGy*cm Dose modulation, iterative reconstruction, and/or weight based adjustment of the mA/kV was utilized to reduce the radiation dose to as low as reasonably achievable. COMPLICATIONS: None FINDINGS: LINES and TUBES: Interval placement of enteric tube, the tip terminates in the stomach. LOWER THORAX: Unremarkable HEPATOBILIARY: No focal hepatic lesions. No biliary ductal dilation. Status post cholecystectomy. SPLEEN: No splenomegaly. PANCREAS: Limited evaluation in the absence of contrast. No evidence of focal masses or ductal dilatation. ADRENALS: No adrenal nodules KIDNEYS/URETERS: No hydronephrosis. No cystic or solid mass lesions. No stones. GI TRACT: Partially visualized. Interval resolution of small bowel intussusception that was noted on prior CT from 02/03/2019. No evidence of bowel obstruction. The large bowel is no longer decompressed and the previously noted possible mild wall thickening is no longer present. LYMPH NODES: No lymphadenopathy. VESSELS: Minimal atherosclerotic calcifications in the abdominal aorta. PERITONEUM / RETROPERITONEUM: No free air or fluid. BONES: Unremarkable. SOFT TISSUES: Unremarkable. IMPRESSION: Interval resolution of jejunojejunal intussusception. No evidence of bowel obstruction. The partially visualized large bowel is no longer decompressed and the previously noted possible mild wall thickening is no longer present. No evidence of colitis in the visualized large bowel. Signed by: Dr. Samuel Alva MD on 02/04/2019 12:29 PM
[2019-02-04] MEDS ORDERED: LORAZEPAM INJ 2 MG/ML VIAL IV PRN (12:45)
--- NOTE | 2019-02-04 14:31 | NUR ---
NG TUBE REMOVED. KITCHEN CALLED REGARDING PATIENT'S NEW DIET.
--- NOTE | 2019-02-04 19:07 | NUR ---
PATIENT IN STABLE CONDITION WITH NO S/S OF RESPIRATORY DISTRESS. IV FLUIDS INFUSING. PAIN MEDICATION RECENTLY GIVEN TO PATIENT. CALL LIGHT IS WITHIN REACH, PATIENT INSTRUCTED TO CALL FOR ASSISTANCE NEEDED. BEDSIDE REPORT GIVEN TO ONCOMING NURSE.
--- NOTE | 2019-02-04 19:20 | NUR ---
PT IS RESTING IN BED. NO RESPIRATORY DISTRESS NOTED. BED IN THE LOWEST POSITION, LOCKED, AND CALL LIGHT WITHIN REACH. WILL CONTINUE TO MONITOR.
[2019-02-05] VITALS (7 sets, daily range): BP systolic 105–126; BP diastolic 59–86
[2019-02-05] MEDS: HYDROMORPHONE 2MG/ML 2 MG/ML ML IV PRN ×5 (03:44→21:25)
[2019-02-05] MEDS: ONDANSETRON HCL INJ 2MG/ML 2ML 2 MG/ML VIAL IV PRN ×2 (03:44→07:49)
[2019-02-05] MEDS: SODIUM CHLORIDE 0.9% 1000ML 1,000 ML IV SCH ×3 (05:18→21:25)
[2019-02-05] MEDS: METOCLOPRAMIDE HCL 10 MG/2ML VIAL IV SCH ×4 (05:18→23:49)
[2019-02-05] MEDS: PIPERACILLIN/TAZO 2.25 GM 50 ML IV SCH ×3 (05:18→21:56)
[2019-02-05 05:58] LABS: BASOPHILS % 0.7 % (0.0-1.0); EOSINOPHILS # (AUTO) 0.3 (0.0-0.4); EOSINOPHILS % 5.4 % (0.0-6.0); HEMATOCRIT 37.7 % (38.2-49.6); HEMOGLOBIN 12.8 g/dL (14.0-18.0); LYMPHOCYTES # (AUTO) 2.1 (1.0-3.2); LYMPHOCYTES % 35.7 % (18.0-39.1); MEAN CORPUSCULAR HEMOGLOBIN 29.5 pg (28-32); MEAN CORPUSCULAR VOLUME 86.9 fL (81-99); MONOCYTES % 16.5 % (4.4-11.3); NEUTROPHILS # (AUTO) 2.4 (2.1-6.9); NEUTROPHILS % 41.2 % (38.7-80.0); PLATELET COUNT 133 x10e3/uL (140-360); RED BLOOD COUNT 4.34 x10e6/uL (4.3-5.7); RED CELL DISTRIBUTION WIDTH 12.9 % (11.7-14.4)
[2019-02-05 06:16] LABS: BLOOD UREA NITROGEN 15 mg/dL (7-26); BUN/CREATININE RATIO 18 (6-25); CALCIUM 8.4 mg/dL (8.4-10.2); CARBON DIOXIDE 26 mmol/L (22-29); CHLORIDE 106 mmol/L (98-107); CREATININE, SERUM 0.83 mg/dL (0.72-1.25); EST GLOMERULAR FILTRATION RATE > 60 ML/MIN (60-); GLUCOSE 103 mg/dL (74-118); MAGNESIUM 2.1 MG/DL (1.3-2.1); SODIUM 137 mmol/L (136-145)
--- NOTE | 2019-02-05 07:48 | NUR ---
Pt received resting in bed. Alert and oriented x4. Oriented to staff and surrounding, and encouraged to press call rios if help needed. Emotional support given. All meds given as ordered. Will monitor
[2019-02-05] MEDS: PANTOPRAZOLE 40 MG 10ML VIAL IV SCH (07:49)
[2019-02-05] MEDS ORDERED: LORAZEPAM INJ 2 MG/ML VIAL IV PRN (10:30)
[2019-02-05] MEDS: PROMETHAZINE 12.5MG/ NACL 0.9% 50 ML IV PRN ×3 (12:25→21:25)
[2019-02-05] MEDS ORDERED: SODIUM CHLORIDE 0.9% 50ML 0 ML ONE (12:57)
[2019-02-05 13:15] LABS: ANISOCYTOSIS SLIGHT; HYPOCHROMASIA SLIGHT; PLATELET ESTIMATE SLIGHTLY DECREASED; PLATELET MORPHOLOGY COMMENT NORMAL; RBC MORPHOLOGY COMMENT NORMAL
--- NOTE | 2019-02-05 16:32 | NUR ---
Nutrition Screen Note RD Recommendation for Physician: -Consider small frequent meals, GI soft, low fat diet per MD. Plan of Care: RD following, monitoring for tolerance and adequacy Nutrition reason for involvement: Nutrition Risk Trigger Primary Diagnose(s): Gastroparesis, nausea, vomiting, renal insufficiency PMH: Positive for gastroparesis. Ht: 72 in Wt: 200 lb BMI: 27.12 kg/m2 IBW: [address] Assessment: (02/05) 38 YOM admitted for gastroparesis. Pt denied any recent weight loss and stated his appetite is good here in the hospital as well as at home prior to admission. Pt denied N/V/C/D, chewing or swallowing issues. Pt had no other questions or concerns. Chart reviewed. Labs and meds reviewed. Current Diet: GI soft Malnutrition Evaluation (02/05) The patient does not meet criteria for a specified degree of malnutrition at this time. Will re-evaluate at follow-up as appropriate. Diet Education Needs Assessment: Diet education not indicated. Nutrition Care Level: low Signed: Virginie Velasquez RD, LD
--- NOTE | 2019-02-05 18:40 | NUR ---
Pt resting in bed. All meds given as ordered. Call rios within reach. Will endorse to next shift
[2019-02-06] VITALS (8 sets, daily range): BP systolic 113–138; BP diastolic 57–78
[2019-02-06] MEDS: HYDROMORPHONE 2MG/ML 2 MG/ML ML IV PRN ×5 (01:57→22:02)
[2019-02-06] MEDS: PROMETHAZINE 12.5MG/ NACL 0.9% 50 ML IV PRN ×4 (04:02→17:05)
[2019-02-06] MEDS: SODIUM CHLORIDE 0.9% 1000ML 1,000 ML IV SCH ×3 (04:02→21:10)
[2019-02-06] MEDS: PIPERACILLIN/TAZO 2.25 GM 50 ML IV SCH ×3 (05:21→21:10)
[2019-02-06] MEDS: METOCLOPRAMIDE HCL 10 MG/2ML VIAL IV SCH ×4 (05:21→23:29)
[2019-02-06 06:10] LABS: BASOPHILS % 0.6 % (0.0-1.0); EOSINOPHILS # (AUTO) 0.4 (0.0-0.4); EOSINOPHILS % 5.1 % (0.0-6.0); HEMATOCRIT 38.4 % (38.2-49.6); HEMOGLOBIN 12.8 g/dL (14.0-18.0); LYMPHOCYTES # (AUTO) 2.5 (1.0-3.2); LYMPHOCYTES % 36.1 % (18.0-39.1); MEAN CORPUSCULAR HEMOGLOBIN 29.5 pg (28-32); MEAN CORPUSCULAR HGB CONC 33.3 g/dL (31-35); MEAN CORPUSCULAR VOLUME 88.5 fL (81-99); MONOCYTES # (AUTO) 0.9 (0.2-0.8); MONOCYTES % 12.5 % (4.4-11.3); NEUTROPHILS # (AUTO) 3.1 (2.1-6.9); NEUTROPHILS % 45.4 % (38.7-80.0); PLATELET COUNT 131 x10e3/uL (140-360); RED BLOOD COUNT 4.34 x10e6/uL (4.3-5.7); RED CELL DISTRIBUTION WIDTH 12.9 % (11.7-14.4)
[2019-02-06 06:27] LABS: ANION GAP 8.1 mmol/L (8-16); BLOOD UREA NITROGEN 17 mg/dL (7-26); BUN/CREATININE RATIO 19 (6-25); CALCIUM 8.4 mg/dL (8.4-10.2); CARBON DIOXIDE 26 mmol/L (22-29); CHLORIDE 109 mmol/L (98-107); CREATININE, SERUM 0.88 mg/dL (0.72-1.25); EST GLOMERULAR FILTRATION RATE > 60 ML/MIN (60-); GLUCOSE 99 mg/dL (74-118); MAGNESIUM 1.9 MG/DL (1.3-2.1); POTASSIUM 4.1 mmol/L (3.5-5.1); SODIUM 139 mmol/L (136-145)
[2019-02-06] MEDS: PANTOPRAZOLE 40 MG 10ML VIAL IV SCH (08:25)
--- NOTE | 2019-02-06 08:26 | NUR ---
Pt received resting in bed. Emotional support given. All meds given as ordered. Call rios within reach. No bowel movement yet. Will monitor
[2019-02-06] MEDS ORDERED: METOCLOPRAMIDE10 MG PO (08:32)
[2019-02-06] MEDS ORDERED: LORAZEPAM1 MG PO (08:32)
[2019-02-06] MEDS ORDERED: ONDANSETRON ODT8 MG PO (08:32)
[2019-02-06] MEDS ORDERED: MAGNESIUM HYDROXIDE 30 ML UDC PO ONE ×4 (11:30→18:00)
--- NOTE | 2019-02-06 13:57 | NUR ---
SOCIAL WORK INITIAL ASSESSMENT Line Service Person to bedside to discuss plan of care with patient/family. CM/SW role and care transitions discussed. Anticipated discharge plan discussed along with duration of care. CM/SW discussed patients right to make decisions in care. CM/SW work hours given. 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 Name and number was also written on the patients whiteboard. Patient verbalized understanding of discussion. CM will follow-up with ongoing discharge and transition of care needs.
[2019-02-06] MEDS: ONDANSETRON HCL INJ 2MG/ML 2ML 2 MG/ML VIAL IV PRN (21:10)
[2019-02-07] VITALS: BP 121/65
[2019-02-07 00:14] VITALS: BP 138/76
[2019-02-07 04:00] VITALS: BP 121/68
[2019-02-07] MEDS: SODIUM CHLORIDE 0.9% 1000ML 1,000 ML IV SCH (04:09)
[2019-02-07] MEDS: HYDROMORPHONE 2MG/ML 2 MG/ML ML IV PRN ×2 (04:10→08:11)
[2019-02-07] MEDS: METOCLOPRAMIDE HCL 10 MG/2ML VIAL IV SCH (06:02)
[2019-02-07] MEDS: PIPERACILLIN/TAZO 2.25 GM 50 ML IV SCH (06:02)
[2019-02-07 07:56] VITALS: BP 131/80
[2019-02-07] MEDS: PANTOPRAZOLE 40 MG 10ML VIAL IV SCH (08:10)
[2019-02-07 08:11] VITALS: BP 131/80
[2019-02-07] MEDS: PROMETHAZINE 12.5MG/ NACL 0.9% 50 ML IV PRN (08:11)
--- NOTE | 2019-02-07 08:11 | NUR ---
Pt received resting in bed. Alert and oriented x4. Pt had a bowel movement last night. Emotional support given. Meds given as ordered. Will monitor
--- NOTE | 2019-02-07 11:55 | NUR ---
Pt educated regarding meds, diet, activities, and follow up with PCP & . Pt verbalized understanding of teaching. Left in wheelchair to private car
--- NOTE | 2019-02-08 04:02 | Discharge Summary ---
ADMISSION DIAGNOSES: 1. Small-bowel intussusception. 2. Gastritis. 3. Gastroparesis. DISCHARGE DIAGNOSES: 1. Small-bowel intussusception. 2. Gastritis. 3. Gastroparesis. 4. Leukocytosis. 5. Cannabis use. HISTORY: The patient has a history of gastritis and gastroparesis. PAST SURGICAL HISTORY: Small bowel resection. FAMILY HISTORY: Noncontributory. SOCIAL HISTORY: The patient denies tobacco, alcohol, or illicit drug use. HOSPITAL COURSE: A 38-year-old male with history of gastritis and gastroparesis with previous bowel resection for intussusception of small bowel, presents with nausea, vomiting, and abdominal pain for the last 2 days. On admission, the patient had Zosyn started. He was placed n.p.o. and NG tube was placed and Surgery was consulted. Chest x-ray was negative. CT of the abdomen showed findings of jejunojejunal intussusception. No evidence of bowel obstruction, pneumatosis, or free air. Mild diffuse thickening of the colon with fatty infiltration of the wall. Repeat CT of the abdomen showed interval resolution of jejunojejunal intussusception. No evidence of bowel obstruction. NG tube was and the patient's diet was advanced and tolerated diet well, but his bowels moved very slowly. The patient had a bowel movement after being given multiple doses of milk of mag per GI. The patient will discharge home and follow up with primary care in 1-2 weeks and GI in 1-2 weeks. The patient was given a new prescription for Reglan, Zofran, and lorazepam. He will continue his home medications of dicyclomine and hyoscyamine. Vital signs stable, the patient afebrile. The patient understands discharge instructions and agrees to plan. Dictated by Marina Vuong NP MD NARDA Russell/MODL /[id number]
== END 2019-02-07 12:00 | disposition home or self-care (01) | DRG 392 ==
LOC: ER 09:08 → ERHOLD 13:58 → OBSVTOIN 13:58 → MED/SURG3 15:22
PROVIDERS: ADMIT Internal Medicine; ATTEND Internal Medicine
DX: K31.84 Gastroparesis (principal); K56.699 Other intestinal obstruction unspecified as to partial versus complete obstruction; K56.1 Intussusception; K29.70 Gastritis, unspecified, without bleeding
CPT/HCPCS: 36415; 71045; 74018; 74150; 74176; 80048; 80053; 80076; 80307; 81001; 82150; 82550; 82553; 83036; 83605; 83690; 83735; 83880; 84443; 84484; 85025; 85610; 85730; 87040; 87045; 87086; 96361; 99284; J0500; J2060; J2405; J2543; J2550; J2765; J7030; J7121